=== PATIENT | female | born 1985 | race Caucasian/White ===

== ENCOUNTER 2023-06-02 08:09 | Inpatient (IN) | payer BC ==
[2023-06-02 08:45] VITALS: BMI 25.3
[2023-06-02] MEDS ORDERED: fentaNYL/Ropivacaine Epidural 0 ML ONE (08:56)
[2023-06-02] MEDS ORDERED: Oxytocin 30 units/NS 500 ML 500 ML ONE (09:02)
[2023-06-02] MEDS ORDERED: Promethazine HCl 25 MG/ML VIAL IM PRN (09:03)
[2023-06-02] MEDS ORDERED: Moisturizing Cream (Eucerin) 113 GM JAR TOP PRN (09:03)
[2023-06-02] MEDS ORDERED: Lactated Ringer's 500 ML IV PRN (09:03)
[2023-06-02] MEDS ORDERED: Acetaminophen 325 MG TAB PO PRN (09:03)
[2023-06-02] MEDS ORDERED: Naloxone HCl 0.4 mg/ml Vial IVP PRN ×2 (09:03)
[2023-06-02] MEDS ORDERED: Ondansetron PF 4 MG/2 ML Vial IVP PRN ×2 (09:03→09:56)
[2023-06-02] MEDS ORDERED: ePHEDrine Sulfate 50 MG/10 ML VIAL SLOW IVP PRN (09:03)
[2023-06-02] MEDS ORDERED: diphenhydrAMINE 50 MG/ML VIAL IVP PRN (09:03)
[2023-06-02 09:10] LABS: Hemoglobin 12.4 g/dL (12.0-15.5); Mean Corpuscular HGB CONC 33.5 g/dL (32.0-36.0); Mean Corpuscular Hemoglobin 29.7 pg (27.0-33.0); Mean Corpuscular Volume 88.5 fl (81.6-98.3); Mean Platelet Volume 9.5 fl (7.4-10.4); Platelet Count 244 10x3/uL (150-450); RBC Distribution Width 14.1 % (11.5-14.5); Red Blood Cell (RBC) Count 4.18 10x6/uL (3.90-5.03); White Blood Cell (WBC) Count 12.6 10x3/uL (3.5-10.5)
[2023-06-02] MEDS ORDERED: Lidocaine 1% (PF) 30 ML VIAL SC PRN (09:11)
[2023-06-02] MEDS ORDERED: Misoprostol 200 MCG TAB PR PRN (09:11)
[2023-06-02] MEDS ORDERED: HYDROcodone/Acetaminophen 5/325 mg Tablet PO PRN ×3 (09:11→09:56)
[2023-06-02] MEDS ORDERED: Diphenoxylate HCl/Atropine Tablet PO PRN ×2 (09:11)
[2023-06-02] MEDS ORDERED: hydrALAZINE 20 MG/ML VIAL SLOW IVP PRN ×3 (09:11→09:56)
[2023-06-02] MEDS ORDERED: Docusate 100 MG CAP PO PRN (09:11)
[2023-06-02] MEDS ORDERED: Ibuprofen 800 MG TAB PO PRN (09:11)
[2023-06-02] MEDS ORDERED: fentaNYL 50 mcg/mL 1 mL Vial SLOW IVP PRN (09:11)
[2023-06-02] MEDS ORDERED: Carboprost 250 MCG/ML AMP IM PRN (09:11)
[2023-06-02] MEDS ORDERED: Lidocaine 1% (PF) 30 ML VIAL ONE ×2 (09:12→09:23)
[2023-06-02] MEDS ORDERED: Lactated Ringer's 1,000 ML IV SCH (09:15)
[2023-06-02] MEDS ORDERED: ACTIVE EPIDURAL FS PRN (09:15)
[2023-06-02] MEDS ORDERED: fentaNYL 2 mcg/Ropivacaine 0.2% Epidural 100 ML CADD EPIDURAL SCH (09:15)
[2023-06-02] MEDS ORDERED: Oxytocin 30 units/NS 500 ML 500 ML IV SCH ×4 (09:15→10:00)
[2023-06-02] MEDS ORDERED: Milk Of Magnesia 30 ML UDCUP PO PRN ×2 (09:54→09:56)
[2023-06-02] MEDS ORDERED: Bisacodyl 10 MG SUPP PR PRN ×2 (09:54→09:56)
[2023-06-02] MEDS ORDERED: diphenhydrAMINE 25 MG CAP PO PRN (09:56)
[2023-06-02] MEDS ORDERED: Preparation H Ointment 28 GM TUBE PR PRN (09:56)
[2023-06-02] MEDS ORDERED: Misoprostol 200 MCG TAB VAG PRN (09:56)
[2023-06-02] MEDS ORDERED: Zolpidem Tartrate 5 MG TAB PO PRN (09:56)
[2023-06-02] MEDS ORDERED: Benzocaine-Menthol 82.5 ML CAN TOP PRN (09:56)
[2023-06-02] MEDS ORDERED: Lanolin Ointment 7 GM TUBE TOP PRN (09:56)
[2023-06-02 10:22] LABS: HBSAg Index 0.16 S/CO (0-0.99); Hep B Surf Ag - L&D Non-Reactive S/CO (NonReactive)
[2023-06-02 10:26] LABS: Syphilis Antibody Nonreactive (Nonreactive); Syphilis Antibody Index 0.03 S/CO (<1.00 Non-Reactive)
[2023-06-02 10:27] LABS: HIV (1/2) Antibody/Antigen Non-Reactive (NonReactive); HIV 1/2 INDEX 0.08 S/CO (<1.00)
[2023-06-02] MEDS ORDERED: Boostrix 0.5 ML (Tdap) VIAL (>/=7 yrs of age) IM ONE (11:00)
[2023-06-02] MEDS: Ibuprofen 800 MG TAB PO SCH ×2 (12:19→20:40)
[2023-06-02] MEDS: HYDROcodone/Acetaminophen 5/325 mg Tablet PO PRN ×2 (16:12→20:40)
[2023-06-02] MEDS ORDERED: Ferrous Sulfate 325 MG TAB PO SCH (17:00)
[2023-06-02] MEDS: Ferrous Sulfate 325 MG TAB PO SCH (19:10)
[2023-06-02] MEDS: Docusate 100 MG CAP PO SCH (20:40)
[2023-06-02] MEDS ORDERED: Docusate 100 MG CAP PO SCH (21:00)
[2023-06-03 05:03] LABS: Hematocrit 34.8 % (34.9-44.5); Hemoglobin 11.5 g/dL (12.0-15.5); Mean Corpuscular Hemoglobin 29.6 pg (27.0-33.0); Mean Corpuscular Volume 89.5 fl (81.6-98.3); Mean Platelet Volume 9.6 fl (7.4-10.4); Platelet Count 217 10x3/uL (150-450); RBC Distribution Width 13.9 % (11.5-14.5); Red Blood Cell (RBC) Count 3.89 10x6/uL (3.90-5.03)
[2023-06-03] MEDS: Ibuprofen 800 MG TAB PO SCH ×3 (05:27→21:35)
[2023-06-03] MEDS: Ferrous Sulfate 325 MG TAB PO SCH ×2 (07:15→16:55)
[2023-06-03] MEDS: Docusate 100 MG CAP PO SCH ×2 (08:29→21:35)
[2023-06-03] MEDS: Prenatal Vitamin 1 TAB PO SCH (08:29)
[2023-06-04] MEDS: Ibuprofen 800 MG TAB PO SCH (05:25)
[2023-06-04 07:56] VITALS: BP 102/56; TEMP 98.2
[2023-06-04] MEDS: Ferrous Sulfate 325 MG TAB PO SCH (09:19)
[2023-06-04] MEDS: Prenatal Vitamin 1 TAB PO SCH (09:19)
[2023-06-04] MEDS: Docusate 100 MG CAP PO SCH (09:19)
== END 2023-06-04 15:34 | disposition home or self-care (01) | DRG 807 ==
LOC: CSHLD/OP 08:09 → CSHLD 08:46 → CSHPED 11:28
PROVIDERS: ADMIT Obstetrics & Gynecology; ATTEND Obstetrics & Gynecology
PROC: 10E0XZZ Delivery of Products of Conception, External Approach (ICD-10-PCS; principal; 2023-06-02)
PROC: 0KQM0ZZ Repair Perineum Muscle, Open Approach (ICD-10-PCS; 2023-06-02)
PROC: 0W8NXZZ Division of Female Perineum, External Approach (ICD-10-PCS; 2023-06-02)
PROC: 3E033XZ Introduction of Vasopressor into Peripheral Vein, Percutaneous Approach (ICD-10-PCS; 2023-06-02)
DX: O42.02 Full-term premature rupture of membranes, onset of labor within 24 hours of rupture (principal); Z37.0 Single live birth; Z3A.36 36 weeks gestation of pregnancy; O70.1 Second degree perineal laceration during delivery
CPT/HCPCS: 36415; 85027; 86780; 86850; 86900; 86901; 87340; 87389; 88307; 99285; J2001; J2590

== ENCOUNTER 2025-05-22 09:54 | Outpatient (CLI) | payer BC | END 2025-05-22 09:55 | disposition home or self-care (01) | LOC: CSHMAMMO 09:54 | PROVIDERS: ATTEND Obstetrics & Gynecology | DX: N64.89 Other specified disorders of breast (principal); R92.331 Mammographic heterogeneous density, right breast | CPT/HCPCS: G0279 ==